=== PATIENT | male | born 1975 | race African-American/Black ===

== ENCOUNTER 2016-10-30 13:48 | Emergency (ER) | payer OTHER ==
[2016-10-30] MEDS ORDERED: ACETAMINOPHEN 325 MG TABLET PO ONE (14:19)
--- NOTE | 2016-10-30 14:20 | ER Document Report ---
ED Medical Screen (RME) - General Stated Complaint: WEAKNESS Notes: 41 yo male c/o fever, bodyaches, sore throat, bilat ear pain x 3 days. hx/o asthma, DM, HTN TRAVEL OUTSIDE OF THE [place] IN LAST 30 DAYS: No - Related Data Allergies/Adverse Reactions: hydrocodone bitartrate [From Vicodin] Allergy (Verified 10/30/16 14:18) tramadol HCl [From Ultram] Allergy (Verified 10/30/16 14:18) Past Medical History - Past Medical History Cardiac Medical History: Reports: Hx Hypercholesterolemia, Hx Hypertension Pulmonary Medical History: Reports: Hx Asthma, Hx Bronchitis Endocrine Medical History: Reports: Hx Diabetes Mellitus Type 2 GI Medical History: Reports: Hx Gastroesophageal Reflux Disease Musculoskeltal Medical History: Reports Hx Arthritis Past Surgical History: Reports: Hx Appendectomy, Hx Cardiac Catheterization, Hx Oral Surgery - Immunizations Immunizations up to date: Yes Hx Diphtheria, Pertussis, Tetanus Vaccination: Yes
--- NOTE | 2016-10-30 16:18 | ER Document Report ---
HPI - HPI Patient complains to provider of: sore throat Pain Level: 3 Context: Patient is a 41-year-old male presents emergency Department complaining of a sore throat, bilateral earache, fever since Friday. States that his is in acute injuries because of this fluids at home but otherwise he hasn't had much of an appetite. Otherwise he denies shortness of breath, chest pain, dyspnea, wheezing. Denies any vomiting but has occasional nausea. Otherwise has had normal bowel movements. PCP is Nayeli amaral [facility] Past medical history denies Past surgical history significant for an appendectomy Social history denies any tobacco, alcohol or drug use Allergies to Ultram and Vicodin - DERM Skin Color: Normal <JADEN ACEVES - Last Filed: 10/30/16 19:50> Past Medical History - General Information source: Patient - Social History Smoking Status: Never Smoker Chew tobacco use (# tins/day): No Frequency of alcohol use: None Drug Abuse: None Family History: Arthritis, CAD - Father, Hyperlipidemia, Hypertension, Malignancy, Thyroid Disfunction Patient has suicidal ideation: No Patient has homicidal ideation: No - Past Medical History Cardiac Medical History: Reports: Hx Hypercholesterolemia, Hx Hypertension Pulmonary Medical History: Reports: Hx Asthma, Hx Bronchitis Endocrine Medical History: Reports: Hx Diabetes Mellitus Type 2 Renal/ Medical History: Denies: Hx Peritoneal Dialysis GI Medical History: Reports: Hx Gastroesophageal Reflux Disease Musculoskeltal Medical History: Reports Hx Arthritis Past Surgical History: Reports: Hx Appendectomy, Hx Cardiac Catheterization, Hx Oral Surgery - Immunizations Immunizations up to date: Yes Hx Diphtheria, Pertussis, Tetanus Vaccination: Yes <JADEN ACEVES - Last Filed: 10/30/16 19:50> Vertical Provider Document - CONSTITUTIONAL Agree With Documented VS: Yes Exam Limitations: No Limitations General Appearance: WD/WN, No Apparent Distress - INFECTION CONTROL TRAVEL OUTSIDE OF THE [place] IN LAST 30 DAYS: No - HEENT HEENT: Atraumatic, Normocephalic, PERRLA, Pharyngeal Tenderness, Pharyngeal Erythema. negative: Tympanic Membrane Red, Tympanic Membrane Bulging - NECK Neck: Normal Inspection, Lymphadenopathy-Left, Lymphadenopathy-Right - RESPIRATORY Respiratory: Breath Sounds Normal, No Respiratory Distress, Chest Non-Tender - CARDIOVASCULAR Cardiovascular: Regular Rhythm, No Murmur, Tachycardia Pulses: Normal: Radial - MUSCULOSKELETAL/EXTREMETIES Musculoskeletal/Extremeties: PONCHO, FROM, Non-Tender, No Edema - NEURO Level of Consciousness: Awake, Alert, Appropriate Motor/Sensory: No Motor Deficit, No Sensory Deficit - DERM Integumentary: Warm, Dry, No Rash <JADEN ACEVES - Last Filed: 10/30/16 19:50> Course - Re-evaluation Re-evalutation: 10/30/16 17:41 Rapid strep is come back positive. Otherwise going to treat patient symptomatically for fever and give him some IV fluids for tachycardia. We will send baseline labs to evaluate for any leukocytosis or abnormalities and electrolytes. Otherwise patient is hemodynamically stable, no acute distress and sitting comfortably. 10/30/16 19:18 Labs did reveal a ptosis of 22,000. Repeat vital signs show a temperature 100.1 , tachycardic in the 1 teens. Otherwise resting comfortably. Is still only received his first bolus of [address] L[address] Case discussed with Dr. Baca. Recommended IV Decadron and Toradol and another liter of fluid and reassessment. Sign out to ALLI Muñoz - Laboratory Result Diagrams: 10/30/16 17:35 10/30/16 17:35 <JADEN ACEVES - Last Filed: 10/30/16 19:50> - Re-evaluation Re-evalutation: 10/30/16 22:17 Patient's vital signs have all normalized after IV fluids, Decadron, Toradol and amoxicillin was given here in the emergency department. Patient feels much better and would like to go home. Clinically he looks very well. Asking for soup. He is going home with a prescription for amoxicillin. - Vital Signs Vital signs: Temp Pulse Resp BP Pulse Ox 98.3 F 87 16 118/79 97 10/30/16 22:00 10/30/16 22:00 10/30/16 22:00 10/30/16 22:00 10/30/16 22:00 - Laboratory Result Diagrams: 10/30/16 17:35 10/30/16 17:35 Laboratory results interpreted by me: 10/30/16 10/30/16 17:35 17:35 WBC 22.0 H Seg Neuts % (Manual) 85 H Lymphocytes % (Manual) 7 L Abs Neuts (Manual) 18.7 H Abs Monocytes (Manual) 1.8 H Sodium 136.2 L Glucose 186 H Total Protein 8.5 H <NAYELI MUÑOZ - Last Filed: 10/30/16 22:18> Discharge <JADEN ACEVES - Last Filed: 10/30/16 19:50> <NAYELI MUÑOZ - Last Filed: 10/30/16 22:18> - Discharge Clinical Impression: Strep pharyngitis Condition: Stable Disposition: HOME, SELF-CARE Instructions: Acetaminophen, Fever ([facility]), Strep Throat ([facility]), Amoxicillin ([facility]) Prescriptions: Amoxicillin 500 mg PO BID #20 capsule Referrals: NAYELI GRAHMA PA-C [Primary Care Provider] - Follow up in 1 month
[2016-10-30] MEDS ORDERED: NORMAL SALINE 1000 ML 1,000 ML IV PRN (16:20)
[2016-10-30] MEDS ORDERED: ONDANSETRON 4 MG TAB.RAPDIS PO ONE (16:20)
[2016-10-30 18:13] LABS: ALANINE AMINOTRANSFERASE 38 U/L (21-72); ALKALINE PHOSPHATASE 97 U/L (38-126); ANION GAP 14 (5-19); ASPARTATE AMINO TRANSFERASE 22 U/L (17-59); BILIRUBIN,TOTAL 0.9 mg/dL (0.2-1.3); BLOOD UREA NITROGEN 10 mg/dL (7-20); CALCIUM 9.3 mg/dL (8.4-10.2); CARBON DIOXIDE 23 mmol/L (22-30); CHLORIDE 99 mmol/L (98-107); CREATININE RESULT 0.93 mg/dL (0.52-1.25); GLUCOSE 186 mg/dL (75-110); POTASSIUM 4.3 mmol/L (3.6-5.0); SODIUM 136.2 mmol/L (137-145); TOTAL PROTEIN 8.5 g/dL (6.3-8.2)
[2016-10-30 18:16] LABS: HEMATOCRIT 46.4 % (37.9-51.0); HEMOGLOBIN 14.9 g/dL (13.5-17.0); HGB HCT DIFFERENCE -1.7; MEAN CORPUSCULAR HEMOGLOBIN 29.1 pg (27.0-33.4); MEAN CORPUSCULAR VOLUME 91 fl (80-97); RED BLOOD COUNT 5.11 10^6/uL (4.35-5.55); RED CELL DISTRIBUTION WIDTH 13.2 % (11.5-14.0)
[2016-10-30 18:34] LABS: BASOPHILS % (MANUAL) 0 % (0-2); EOSINOPHILS % (MANUAL) 0 % (0-6); LYMPHOCYTES % (MANUAL) 7 % (13-45); TOTAL CELLS COUNTED 100
[2016-10-30 18:35] LABS: RBC MORPHOLOGY COMMENT NORMO-CYTIC/CHROMIC
[2016-10-30 18:36] LABS: TOXIC VACUOLATION PRESENT
[2016-10-30] MEDS ORDERED: KETOROLAC TROMETHAMINE INJ/PF 30 MG/1 ML SDV IV ONE (19:16)
[2016-10-30] MEDS ORDERED: DEXAMETHASONE SOD PHOSPHATE INJ 4 MG/1 ML VIAL IV ONE (19:16)
[2016-10-30] MEDS ORDERED: NORMAL SALINE 1000 ML 1,000 ML IV ONE (21:00)
[2016-10-30 22:13] VITALS: BP 118/79
== END 2016-10-30 22:25 | disposition home or self-care (01) ==
LOC: ER 13:48
DX: J02.0 Streptococcal pharyngitis (principal); H92.03 Otalgia, bilateral; R50.9 Fever, unspecified; R11.0 Nausea; R59.0 Localized enlarged lymph nodes; I10 Essential (primary) hypertension; J45.909 Unspecified asthma, uncomplicated; E11.9 Type 2 diabetes mellitus without complications; Z88.5 Allergy status to narcotic agent; R00.0 Tachycardia, unspecified
CPT/HCPCS: 99283; 96361; 96374; 96375; 36415; 87040; 87880; 85025; 80053; 83605; 71020; J1100; S0119; J1885; J7030

== ENCOUNTER 2016-11-26 21:46 | Emergency (ER) | payer OTHER ==
[2016-11-27] MEDS ORDERED: IBUPROFEN 800 MG TABLET PO ONE (02:22)
--- NOTE | 2016-11-27 02:26 | ER Document Report ---
ED ENT - General Chief Complaint: Sore Throat Stated Complaint: SORE THROAT,FEVER Time seen by provider: 02:21 Mode of Arrival: Ambulatory Information source: Patient Notes: 41-year-old male presents to ED for sore throat bodyaches fever. He states he had strep throat 3 weeks ago and it feels the same now TRAVEL OUTSIDE OF THE [place] IN LAST 30 DAYS: No - HPI Patient complains to provider of: Nose problem, Throat problem Onset: Other - Couple days Onset/Duration: Worse Quality of pain: Sharp Severity: Moderate Pain Level: 4 Context: Recent Illness Location of pain: Nose, Sinus, Throat Associated symptoms: Cough, Dizziness, Fever, Runny nose, Sinus drainage, Sore throat Similar symptoms previously: Yes Recently seen / treated by doctor: Yes - Related Data Allergies/Adverse Reactions: hydrocodone bitartrate [From Vicodin] Allergy (Verified 11/27/16 00:58) tramadol HCl [From Ultram] Allergy (Verified 11/27/16 00:58) Past Medical History - General Information source: Patient - Social History Smoking Status: Never Smoker Cigarette use (# per day): No Chew tobacco use (# tins/day): No Smoking Education Provided: No Frequency of alcohol use: None Drug Abuse: None Occupation: sells cars Lives with: Family Family History: Arthritis, CAD - Father, Hyperlipidemia, Hypertension, Malignancy, Thyroid Disfunction Patient has suicidal ideation: No Patient has homicidal ideation: No - Past Medical History Cardiac Medical History: Reports: Hx Hypercholesterolemia, Hx Hypertension Pulmonary Medical History: Reports: Hx Asthma, Hx Bronchitis EENT Medical History: Reports: None Neurological Medical History: Reports: None Endocrine Medical History: Reports: Hx Diabetes Mellitus Type 2 Renal/ Medical History: Reports: None Malignancy Medical History: Reports None GI Medical History: Reports: Hx Gastroesophageal Reflux Disease Musculoskeltal Medical History: Reports Hx Arthritis Skin Medical History: Reports None Psychiatric Medical History: Reports: None Traumatic Medical History: Reports: None Infectious Medical History: Reports: None Past Surgical History: Reports: Hx Appendectomy, Hx Cardiac Catheterization, Hx Oral Surgery - Immunizations Immunizations up to date: Yes Hx Diphtheria, Pertussis, Tetanus Vaccination: Yes Review of Systems - Review of Systems Constitutional: Fever, Recent illness EENT: Nose discharge, Sinus discharge, Throat pain Cardiovascular: No symptoms reported Respiratory: Cough Gastrointestinal: No symptoms reported Genitourinary: No symptoms reported Male Genitourinary: No symptoms reported Musculoskeletal: No symptoms reported Skin: No symptoms reported Hematologic/Lymphatic: No symptoms reported Neurological/Psychological: No symptoms reported -: Yes All other systems reviewed and negative Physical Exam - Vital signs Vitals: Temp Pulse Resp BP Pulse Ox 97.9 F 94 18 109/89 H 98 11/27/16 01:33 11/27/16 01:33 11/27/16 01:33 11/27/16 01:33 11/27/16 01:33 Interpretation: Normal - General General appearance: Appears well, Alert - HEENT Head: Normocephalic, Atraumatic Eyes: Normal Pupils: PERRL Ears: Normal External canal: Normal Tympanic membrane: Normal Sinus: Normal Nasal: Purulent discharge, Swelling Mouth/Lips: Normal Mucous membranes: Normal Pharynx: Erythema, Post nasal drainage. No: Exudate, Peritonsillar abscess, Retropharyngeal abscess, Tonsillar hypertrophy, Uvular edema, Potential airway comprom. Neck: Normal - Respiratory Respiratory status: No respiratory distress Chest status: Nontender Breath sounds: Nonproductive cough Chest palpation: Normal - Cardiovascular Rhythm: Regular Heart sounds: Normal auscultation Murmur: No - Abdominal Inspection: Normal Distension: No distension Bowel sounds: Normal Tenderness: Nontender Organomegaly: No organomegaly - Back Back: Normal, Nontender - Extremities General upper extremity: Normal inspection, Nontender, Normal color, Normal ROM , Normal temperature General lower extremity: Normal inspection, Nontender, Normal color, Normal ROM , Normal temperature, Normal weight bearing. No: Gregory's sign - Neurological Neuro grossly intact: Yes Cognition: Normal Orientation: AAOx4 Hurley Coma Scale Eye Opening: Spontaneous Nika Coma Scale Verbal: Oriented Nika Coma Scale Motor: Obeys Commands Hurley Coma Scale Total: 15 Speech: Normal Motor strength normal: LUE, RUE, LLE, RLE Sensory: Normal - Psychological Associated symptoms: Normal affect, Normal mood - Skin Skin Temperature: Warm Skin Moisture: Dry Skin Color: Normal Course - Re-evaluation Re-evalutation: 11/27/16 04:40 Patient was treated with a Decadron shot and azithromycin and sent home with a prescription for azithromycin. Patient instructed to follow-up with his primary doctor by telephone in the morning to schedule a follow-up visit. Patient verbalized understanding of the instructions. - Vital Signs Vital signs: Temp Pulse Resp BP Pulse Ox 98.6 F 97 20 130/89 H 97 11/27/16 03:35 11/27/16 03:35 11/27/16 03:35 11/27/16 03:35 11/27/16 03:35 Discharge - Discharge Clinical Impression: Strep throat Condition: Stable Disposition: HOME, SELF-CARE Instructions: Family Physicians / Practices Additional Instructions: STREP THROAT: Your sore throat is due to the streptococcus germ (strep throat). Strep throat usually makes you feel quite ill with fever and aches, headache, swollen sore throat, and tender bumps under the angles of the jaw. Strep throat requires antibiotic treatment. Although the sore throat may go away by itself, complications such as rheumatic fever, kidney disease, or throat abscess can occur. We usually prescribe antibiotics by mouth. Be sure to take the medicine until it's gone. If you stop early, the strep may come back. If you are vomiting, are severely ill, or can't remember to take pills, we can give you an antibiotic shot. Take acetaminophen or ibuprofen for pain and fever. Sip frequent clear liquids, or use popsicles or ice chips. Anesthetic sprays or lozenges may help. Make sure the air in the room is not too dry. Avoid using decongestants or antihistamines. Call the doctor if there is no improvement in three days, or if you have difficulty breathing, increasing throat pain, high fever, rash, or frequent vomiting. Azithromycin Azithromycin (Zithromax) is a broad spectrum antibiotic in the same class as erythromycin. It can treat a variety of bacterial infections, but is most frequently used for respiratory infections. Azithromycin is extremely long-lasting. It accumulates in body tissues and continues to kill bacteria for many days. In order to improve absorption, Azithromycin should be taken at least one hour before or two hours after a meal. It does not have the same strong tendency to upset the stomach as erythromycin and is usually very well tolerated. Patients who have had a rash or other true allergic reactions to erythromycin should not take this medication. Call if you develop gastrointestinal distress, severe diarrhea, rash, hives, itching, or shortness of breath. STEROID MEDICATION: You have been given a medicine of the cortisone/steroid class. This medication is used to control inflammation or allergy. It is usually only given for a short period of time, until the acute process subsides. There are usually no side effects from short-term use of cortisone-like medications. Some persons feel an increased sense of well-being and are not sleepy at bedtime. Long-term use of cortisone medications is best avoided, unless required for a severe condition. If your condition does not remit, or relapses after the course of corticosteroid medication, you should consult your physician. FOLLOW-UP CARE: If you have been referred to a physician for follow-up care, call the physician s office for an appointment as you were instructed or within the next two days. If you experience worsening or a significant change in your symptoms, notify the physician immediately or return to the Emergency Department at any time for re-evaluation. Prescriptions: Azithromycin [Zithromax 250 mg Tablet] 250 mg PO ASDIR PRN #6 tablet PRN Reason: Forms: Elevated Blood Pressure, Return to Work
[2016-11-27] MEDS ORDERED: DEXAMETHASONE SOD PHOS INJ 10 MG/1 ML VIAL IM ONE (03:15)
[2016-11-27] MEDS ORDERED: AZITHROMYCIN 250 MG TABLET PO ONE (03:15)
[2016-11-27 03:37] VITALS: BP 130/89
== END 2016-11-27 03:35 | disposition home or self-care (01) ==
LOC: ER 21:46
DX: J02.0 Streptococcal pharyngitis (principal); R50.9 Fever, unspecified; R05 Cough; R42 Dizziness and giddiness; J34.89 Other specified disorders of nose and nasal sinuses; I10 Essential (primary) hypertension; J45.909 Unspecified asthma, uncomplicated; E11.9 Type 2 diabetes mellitus without complications; Z88.5 Allergy status to narcotic agent
CPT/HCPCS: 99283; 96372; 87880; 87804; J1100

== ENCOUNTER 2017-03-20 14:48 | Emergency (ER) | payer OTHER ==
[2017-03-20] MEDS ORDERED: ASPIRIN 81 MG TABLET, CHEWABLE PO ONE (15:46)
--- NOTE | 2017-03-20 16:18 | RADIOLOGY REPORT (SQ) ---
EXAM DESCRIPTION: CHEST SINGLE VIEW COMPLETED DATE/TIME: 03/20/2017 4:00 pm REASON FOR STUDY: chest pain COMPARISON: Two-view chest 10/30/2016 EXAM PARAMETERS: NUMBER OF VIEWS: One view. TECHNIQUE: Single frontal radiographic view of the chest acquired. RADIATION DOSE: NA LIMITATIONS: None. FINDINGS: LUNGS AND PLEURA: No opacities, masses or pneumothorax. No pleural effusion. MEDIASTINUM AND HILAR STRUCTURES: No masses. Contour normal. HEART AND VASCULAR STRUCTURES: Heart normal in size. Normal vasculature. BONES: No acute findings. HARDWARE: None in the chest. OTHER: No other significant finding. IMPRESSION: NO ACUTE RADIOGRAPHIC FINDING IN THE CHEST. TECHNICAL DOCUMENTATION: JOB ID: [id number]
--- NOTE | 2017-03-20 16:45 | ER Document Report ---
ED Cardiac - General Chief Complaint: Chest Pain Stated Complaint: CHEST PAIN Time Seen by Provider: 03/20/17 16:01 Mode of Arrival: Ambulatory Information source: Patient Notes: 41 yo obese non smoker, htn, dm, hyperlipediemic male states he does not want to stay for evaluation now or blood draw. He had episode of retrusternal chest pain that lasted 10-15 minutes which began while he was stopped at a stoplight. Gone now. Had EKG and Chest xray done. He spoke with his after discussion with him about the risks of due AL or complications unevaluated chest pain. Emily orellana RN was in the room for this discussion. Pt states he will accept the responsibiltiy and signed out AMA. I went in detail about all his risks for CAD, obesity, DM , HTN, hyperliopedemia. He has been evaluated for chest pain about 2 years ago. He states his stress test were negative (2) along with negative cardiac cath. 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 TRAVEL OUTSIDE OF THE [place] IN LAST 30 DAYS: No - Related Data Allergies/Adverse Reactions: hydrocodone bitartrate [From Vicodin] Allergy (Verified 03/20/17 15:08) tramadol HCl [From Ultram] Allergy (Verified 03/20/17 15:08) Past Medical History - General Information source: Patient - Social History Smoking Status: Never Smoker Chew tobacco use (# tins/day): No Frequency of alcohol use: None Drug Abuse: None Lives with: Spouse/Significant other Family History: Arthritis, CAD - Father, Hyperlipidemia, Hypertension, Malignancy, Thyroid Disfunction Patient has suicidal ideation: No Patient has homicidal ideation: No - Past Medical History Cardiac Medical History: Reports: Hx Hypercholesterolemia, Hx Hypertension Pulmonary Medical History: Reports: Hx Asthma, Hx Bronchitis Endocrine Medical History: Reports: Hx Diabetes Mellitus Type 2 Renal/ Medical History: Denies: Hx Peritoneal Dialysis GI Medical History: Reports: Hx Gastroesophageal Reflux Disease Musculoskeltal Medical History: Reports Hx Arthritis Past Surgical History: Reports: Hx Appendectomy, Hx Cardiac Catheterization, Hx Oral Surgery - Immunizations Immunizations up to date: Yes Hx Diphtheria, Pertussis, Tetanus Vaccination: Yes Review of Systems - Review of Systems Constitutional: No symptoms reported EENT: No symptoms reported Cardiovascular: See HPI Respiratory: No symptoms reported Gastrointestinal: No symptoms reported Genitourinary: No symptoms reported Male Genitourinary: No symptoms reported Musculoskeletal: No symptoms reported Skin: No symptoms reported Hematologic/Lymphatic: No symptoms reported Neurological/Psychological: No symptoms reported Physical Exam - Vital signs Vitals: Temp Pulse Resp BP Pulse Ox 98.5 F 92 16 133/89 H 97 03/20/17 14:50 03/20/17 14:50 03/20/17 14:50 03/20/17 14:50 03/20/17 14:50 Interpretation: Normal - General General appearance: Appears well, Alert - HEENT Head: Normocephalic, Atraumatic Eyes: Normal Pupils: PERRL Neck: Supple - Respiratory Respiratory status: No respiratory distress Chest status: Nontender Breath sounds: Normal Chest palpation: Normal - Cardiovascular Rhythm: Regular Heart sounds: Normal auscultation Murmur: No - Extremities General upper extremity: Normal inspection, Nontender, Normal color, Normal ROM , Normal temperature General lower extremity: Normal inspection, Nontender, Normal color, Normal ROM , Normal temperature, Normal weight bearing. No: Gregory's sign - Neurological Neuro grossly intact: Yes Cognition: Normal Orientation: AAOx4 Nika Coma Scale Eye Opening: Spontaneous Nika Coma Scale Verbal: Oriented Nika Coma Scale Motor: Obeys Commands Nika Coma Scale Total: 15 Speech: Normal Motor strength normal: LUE, RUE, LLE, RLE Sensory: Normal - Psychological Associated symptoms: Normal affect, Normal mood - Skin Skin Temperature: Warm Skin Moisture: Dry Skin Color: Normal Course - Re-evaluation Re-evalutation: 03/20/17 16:37 Patient does not want to stay for lab work. The chest x-ray is negative and the EKG shows normal sinus rhythm rate of 90. He accepts the responsibility of potentially dying from a heart attack without the full evaluation he signed AMA form and I told him he needs to start taking one baby aspirin a day, lose weight , and see a furnace operator. 03/21/17 04:13 reviewing and completing pt chart and noted that no vitals were placed into [facility]. I have called the [facility] the night charge nurse to pull the record for the pivot vital signs to be added to the record. - Vital Signs Vital signs: Temp Pulse Resp BP Pulse Ox 98.5 F 92 16 133/89 H 97 03/20/17 14:50 03/20/17 14:50 03/20/17 14:50 03/20/17 14:50 03/20/17 14:50 Discharge - Discharge Clinical Impression: Chest pain Condition: Stable Disposition: AGAINST MEDICAL ADVICE Instructions: Chest Pain of Unclear Cause ([facility]), Aspirin (Cardiac) ([facility]) Additional Instructions: take baby aspirin daily lose weight to ER if you change your mind about cardiac/chest pain evaluation cariology referral given to you . dr. sung. Please complete the patient satisfaction survey if you get one, and return it.. If you do not receive a survey, then you can go to the [facility] website, [email or web address] and place your comments about your very good care. Thank you very much. It was a pleasure being your medical provider today. Referrals: NAYELI GRAHAM PA-C [Primary Care Provider] - Follow up as needed PARAMJIT KHAN MD [ACTIVE STAFF] - Follow up tomorrow
--- NOTE | 2017-03-20 22:26 | EKG REPORT ---
SEVERITY:- BORDERLINE ECG - SINUS RHYTHM BORDERLINE LEFT AXIS DEVIATION BORDERLINE T ABNORMALITIES, DIFFUSE LEADS : Confirmed by: Rebeca Chaudhary 20-Mar-2017 22:25:58
[2017-03-21 09:17] VITALS: BP 133/89
== END 2017-03-20 16:39 | disposition left against medical advice (07) ==
LOC: ER 14:48
DX: R07.9 Chest pain, unspecified (principal); I10 Essential (primary) hypertension; E78.5 Hyperlipidemia, unspecified; E11.9 Type 2 diabetes mellitus without complications; E66.9 Obesity, unspecified; J45.909 Unspecified asthma, uncomplicated; Z68.44 Body mass index [BMI] 60.0-69.9, adult; Z53.20 Procedure and treatment not carried out because of patient's decision for unspecified reasons; Z88.5 Allergy status to narcotic agent; Z82.49 Family history of ischemic heart disease and other diseases of the circulatory system
CPT/HCPCS: 71010; 93005; 93010; 99285

== ENCOUNTER → 2017-04-15 | Outpatient (CLI) | payer OTHER | LOC: LAB 20:17 | PROVIDERS: ATTEND Nurse Practitioner Acute Care | DX: N39.0 Urinary tract infection, site not specified (principal); M54.5 Low back pain | CPT/HCPCS: 87086; 87088; 87186 ==

== ENCOUNTER → 2017-05-20 | Outpatient (CLI) | payer OTHER | LOC: LAB 20:10 | PROVIDERS: ATTEND Nurse Practitioner Acute Care | DX: R30.0 Dysuria (principal) | CPT/HCPCS: 87086 ==

== ENCOUNTER 2017-09-15 12:40 | Emergency (ER) | payer SELFPAY ==
--- NOTE | 2017-09-15 13:17 | ER Document Report ---
ED Medical Screen (RME) - General Chief Complaint: Headache Stated Complaint: HEADACHE Time Seen by Provider: 09/15/17 13:04 Mode of Arrival: Ambulatory Information source: Patient Notes: Patient is a 41 year old male with a history of Diabetes and HTN presents to the emergency department complaining of a headache onset 4 days ago. Patients associated symptoms include neck pain and slight photophobia. Patient states that the pain gradually worsened over time. Patient states that it is rare for him to get headaches. Patient denies fever, cough, or change in vision. Patient states that he has taken Motrin and Aleve but it does not alleviate is symptoms for long. GENERAL: Alert, interacts well. No acute distress. LUNGS: Clear to auscultation bilaterally, no wheezes, rales, or rhonchi. No respiratory distress. HEART: Regular rate and rhythm. No murmurs, gallops, or rubs. I have greeted and performed a rapid initial assessment of this patient. A comprehensive ED assessment and evaluation of the patient, analysis of test results and completion of the medical decision making process will be conducted by additional ED providers. TRAVEL OUTSIDE OF THE [place] IN LAST 30 DAYS: No - Related Data Allergies/Adverse Reactions: hydrocodone bitartrate [From Vicodin] Allergy (Verified 09/15/17 12:41) tramadol HCl [From Ultram] Allergy (Verified 09/15/17 12:41) Past Medical History - Past Medical History Cardiac Medical History: Reports: Hx Hypercholesterolemia, Hx Hypertension Pulmonary Medical History: Reports: Hx Asthma, Hx Bronchitis Endocrine Medical History: Reports: Hx Diabetes Mellitus Type 2 Renal/ Medical History: Denies: Hx Peritoneal Dialysis GI Medical History: Reports: Hx Gastroesophageal Reflux Disease Musculoskeltal Medical History: Reports Hx Arthritis Past Surgical History: Reports: Hx Appendectomy, Hx Cardiac Catheterization, Hx Oral Surgery - Immunizations Immunizations up to date: Yes Hx Diphtheria, Pertussis, Tetanus Vaccination: Yes Physical Exam - Vital signs Vitals: Temp Pulse Resp BP Pulse Ox 97.8 F 75 16 141/97 H 96 09/15/17 12:46 09/15/17 12:46 09/15/17 12:46 09/15/17 12:46 09/15/17 12:46 Course - Vital Signs Vital signs: Temp Pulse Resp BP Pulse Ox 97.8 F 75 16 141/97 H 96 09/15/17 12:46 09/15/17 12:46 09/15/17 12:46 09/15/17 12:46 09/15/17 12:46 Scribe Documentation - Scribe Written by Jaiden:: Jaiden More, 09/15/2017 13:17 acting as scribe for :: Bhavik
[2017-09-15 13:48] LABS: ABSOLUTE BASOPHILS # (AUTO) 0.1 10^3/uL (0.0-0.2); ABSOLUTE EOSINOPHILS # (AUTO) 0.1 10^3/uL (0.0-0.6); ABSOLUTE LYMPHOCYTES (AUTO) 2.7 10^3/uL (0.5-4.7); ABSOLUTE MONOCYTES (AUTO) 0.9 10^3/uL (0.1-1.4); BASOPHILS % (AUTO) 0.7 % (0-2); EOSINOPHILS % (AUTO) 1.5 % (0-6); HEMATOCRIT 48.7 % (37.9-51.0); HGB HCT DIFFERENCE -0.7; MEAN CORPUSCULAR VOLUME 91 fl (80-97); MONOCYTES % (AUTO) 9.7 % (3-13); RED BLOOD COUNT 5.34 10^6/uL (4.35-5.55); RED CELL DISTRIBUTION WIDTH 13.4 % (11.5-14.0); SEGMENTED NEUTROPHILS % (AUTO) 57.1 % (42-78); WHITE BLOOD COUNT 8.8 10^3/uL (4.0-10.5)
[2017-09-15 14:10] LABS: ANION GAP 13 (5-19); BLOOD UREA NITROGEN 13 mg/dL (7-20); CALCIUM 9.5 mg/dL (8.4-10.2); CARBON DIOXIDE 29 mmol/L (22-30); CHLORIDE 101 mmol/L (98-107); CREATININE RESULT 0.75 mg/dL (0.52-1.25); GLUCOSE 132 mg/dL (75-110); POTASSIUM 4.5 mmol/L (3.6-5.0)
[2017-09-15] MEDS ORDERED: ACETAMINOPHEN 325 MG TABLET PO ONE (14:47)
--- NOTE | 2017-09-15 15:04 | ER Document Report ---
ED Headache - General Chief Complaint: Headache Stated Complaint: HEADACHE Time Seen by Provider: 09/15/17 13:04 Mode of Arrival: Ambulatory Information source: Patient Notes: 41-year-old male with past medical history of high blood pressure, high cholesterol, diabetes who presents with 1 week the slow development of a headache after 24 hours of runny nose, congestion, and left ear pain. Patient states the headache is actually improved. He denies any blurry vision, trauma, neck pain, fevers, vomiting, weakness or numbness, or any other acute problems. TRAVEL OUTSIDE OF THE [place] IN LAST 30 DAYS: No - HPI Patient complains to provider of: Headache Patient reports: Other - See above Onset: Other - See above Onset was: Gradual. denies: Abrupt Timing: Better Quality of pain: Achy Severity: Moderate Pain Level: 1 Context: Other - See above. denies: Head injury, Meningitis exposure Associated symptoms: Other - See above Exacerbated by: Light, Noise Similar symptoms previously: No Recently seen / treated by doctor: No - Related Data Allergies/Adverse Reactions: hydrocodone bitartrate [From Vicodin] Allergy (Verified 09/15/17 12:41) tramadol HCl [From Ultram] Allergy (Verified 09/15/17 12:41) Past Medical History - General Information source: Patient - Social History Smoking Status: Never Smoker Cigarette use (# per day): No Chew tobacco use (# tins/day): No Smoking Education Provided: No Frequency of alcohol use: None Drug Abuse: None Family History: Arthritis, CAD - Father, Hyperlipidemia, Hypertension, Malignancy, Thyroid Disfunction Patient has suicidal ideation: No Patient has homicidal ideation: No - Past Medical History Cardiac Medical History: Reports: Hx Hypercholesterolemia, Hx Hypertension Pulmonary Medical History: Reports: Hx Asthma, Hx Bronchitis Endocrine Medical History: Reports: Hx Diabetes Mellitus Type 2 Renal/ Medical History: Denies: Hx Peritoneal Dialysis GI Medical History: Reports: Hx Gastroesophageal Reflux Disease Musculoskeltal Medical History: Reports Hx Arthritis Past Surgical History: Reports: Hx Appendectomy, Hx Cardiac Catheterization, Hx Oral Surgery - Immunizations Immunizations up to date: Yes Hx Diphtheria, Pertussis, Tetanus Vaccination: Yes Review of Systems - Review of Systems Constitutional: denies: Fever EENT: denies: Eye discharge, Nose discharge Gastrointestinal: denies: Diarrhea, Vomiting Genitourinary: denies: Dysuria Musculoskeletal: denies: Leg swelling Skin: Other - no hives. denies: Rash Neurological/Psychological: denies: Confusion, Hallucinations, Gait changes, Loss of power, Numbness -: Yes All other systems reviewed and negative Physical Exam - Vital signs Vitals: Temp Pulse Resp BP Pulse Ox 97.8 F 75 16 141/97 H 96 09/15/17 12:46 09/15/17 12:46 09/15/17 12:46 09/15/17 12:46 09/15/17 12:46 Notes: Reviewed vital signs and nursing note as charted by RN. CONSTITUTIONAL: Alert and oriented and responds appropriately to questions. Well -appearing; well-nourished HEAD: Normocephalic; atraumatic EYES: PERRL ENT: Normal nose; bilateral nonpurulent nasal rhinorrhea; no mastoid tenderness or swelling; no tympanic membrane lesions or discharge from the ER; moist mucous membranes; pharynx without lesions noted NECK: Supple without meningismus; non-tender; no cervical lymphadenopathy, no masses CARD: Regular rate and rhythm; no murmurs, no clicks, no rubs, no gallops; symmetric distal pulses RESP: Normal chest excursion without splinting or tachypnea; breath sounds clear and equal bilaterally EXT: Normal ROM in all joints; non-tender to palpation; no cyanosis, no effusions, no edema SKIN: No acute lesions noted NEURO: CN II through XII are intact. Patient has 5 out of 5 bilateral upper and lower extremity strength with sensation intact to light touch PSYCH: The patient's mood and manner are appropriate. Grooming and personal hygiene are appropriate. Course - Re-evaluation Re-evalutation: 09/15/17 15:07 Given the history, physical, frontal headache, no fever, slow onset of symptoms with improved headache at this time, symptom onset after 2 days of congestion, no mastoid tenderness or swelling, no fevers, no focal neurological deficits, I do believe acute sinusitis, acute bacterial meningitis, subarachnoid hemorrhage , all to be extremely unlikely. Given lack of previous imaging I will order CT scan of the head and provide Tylenol. We will reassess. 09/15/17 16:10 CT scan of the head as recorded. Patient currently denies any headache. Patient still has no focal neurological deficits. Patient will be discharged home at this time with strict return precautions and follow-up with the primary provider. I had a long discussion with the patient regarding the low pretest probability I have subarachnoid hemorrhage. I have explained given the onset of his headache and the symptomatology that it does not seem like a subarachnoid hemorrhage. I have explained that I cannot rule out this diagnosis with certainty with a CT scan given the time difference between onset of symptoms and current CT. Patient states he understands this and would like to defer the lumbar puncture at this time understanding the risks and benefits. I believe that this is a reasonable option at this time. - Vital Signs Vital signs: Temp Pulse Resp BP Pulse Ox 97.8 F 75 16 141/97 H 96 09/15/17 12:46 09/15/17 12:46 09/15/17 12:46 09/15/17 12:46 09/15/17 12:46 - Laboratory Result Diagrams: 09/15/17 13:33 09/15/17 13:33 Laboratory results interpreted by me: 09/15/17 13:33 Glucose 132 H Discharge - Discharge Clinical Impression: Nasal congestion Headache Qualifiers: Headache type: unspecified Headache chronicity pattern: acute headache Intractability: not intractable Qualified Code(s): R51 - Headache Condition: Good Disposition: HOME, SELF-CARE Additional Instructions: Come back immediately with any worsening headache, blurry vision, fevers, vomiting, neck stiffness, weakness or numbness, or any other acute problems.
--- NOTE | 2017-09-15 15:10 | RADIOLOGY REPORT (SQ) ---
EXAM DESCRIPTION: CT HEAD WITHOUT COMPLETED DATE/TIME: 09/15/2017 2:56 pm REASON FOR STUDY: 41, headache;congestion COMPARISON: 01/10/2016 TECHNIQUE: Axial images acquired through the brain without intravenous contrast. Images reviewed wi th bone, brain and subdural windows. Images stored on PACS. All CT scanners at this facility use dose modulation, iterative reconstruction, and/or weight based d osing when appropriate to reduce radiation dose to as low as reasonably achievable (ALARA). [facility]: Dose Right [facility]: CareDose [facility]: Dose Right [facility]: Teradose 4D [facility]: Smart Local Motion RADIATION DOSE: CT Rad equipment meets quality standard of care and radiation dose reduction techniq ues were employed. CTDIvol: 64.6 mGy. DLP: 1163 mGy-cm. mGy. LIMITATIONS: None. FINDINGS: VENTRICLES: Normal size and contour. CEREBRUM: No masses. No hemorrhage. No midline shift. No evidence for acute infarction. Normal gra y/white matter differentiation. No areas of low density in the white matter. CEREBELLUM: No masses. No hemorrhage. No alteration of density. No evidence for acute infarction. EXTRAAXIAL SPACES: No fluid collections. No masses. ORBITS AND GLOBE: No intra- or extraconal masses. Normal contour of globe without masses. CALVARIUM: No fracture. PARANASAL SINUSES: No fluid or mucosal thickening. SOFT TISSUES: No mass or hematoma. OTHER: No other significant finding. IMPRESSION: No acute intracranial findings. EVIDENCE OF ACUTE STROKE: NO. COMMENT: Quality ID # [id number]: Final reports with documentation of one or more dose reduction techniques (e.g., Automated exposure control, adjustment of the mA and/or kV according to patient size, use of iterative reconstruction technique) TECHNICAL DOCUMENTATION: JOB ID: [id number] [place]-72 2010 [employer]- All Rights Reserved
[2017-09-15 16:33] VITALS: BP 120/88
== END 2017-09-15 16:33 | disposition home or self-care (01) ==
LOC: ER 12:40
DX: R09.81 Nasal congestion (principal); R51 Headache; H92.02 Otalgia, left ear; E78.00 Pure hypercholesterolemia, unspecified; I10 Essential (primary) hypertension; E11.9 Type 2 diabetes mellitus without complications
CPT/HCPCS: 36415; 70450; 80048; 85025; 99284

== ENCOUNTER 2018-01-16 21:22 | Emergency (ER) | payer SELFPAY ==
[2018-01-16 22:51] LABS: APPEARANCE,URINE CLEAR; BILIRUBIN,URINE NEGATIVE (NEGATIVE); COLOR,URINE YELLOW; GLUCOSE, URINE >=500 mg/dL (NEGATIVE); KETONES,URINE NEGATIVE (NEGATIVE); LEUKOCYTE ESTERASE,URINE NEGATIVE (NEGATIVE); NITRITE,URINE NEGATIVE (NEGATIVE); PROTEIN,URINE NEGATIVE (NEGATIVE); URINE SPECIFIC GRAVITY 1.025; UROBILINOGEN,URINE NEGATIVE mg/dL (<2.0)
[2018-01-17 00:27] LABS: ABSOLUTE BASOPHILS # (AUTO) 0.1 10^3/uL (0.0-0.2); ABSOLUTE EOSINOPHILS # (AUTO) 0.1 10^3/uL (0.0-0.6); ABSOLUTE LYMPHOCYTES (AUTO) 3.6 10^3/uL (0.5-4.7); ABSOLUTE MONOCYTES (AUTO) 1.1 10^3/uL (0.1-1.4); ABSOLUTE NEUT (AUTO) 5.3 10^3/uL (1.7-8.2); BASOPHILS % (AUTO) 0.8 % (0-2); EOSINOPHILS % (AUTO) 1.2 % (0-6); HEMOGLOBIN 15.6 g/dL (13.5-17.0); MEAN CORPUSCULAR HEMOGLOBIN 29.9 pg (27.0-33.4); MEAN CORPUSCULAR HGB CONC 33.2 g/dL (32.0-36.0); MEAN CORPUSCULAR VOLUME 90 fl (80-97); MONOCYTES % (AUTO) 10.6 % (3-13); PLATELET COUNT 239 10^3/uL (150-450); RED BLOOD COUNT 5.21 10^6/uL (4.35-5.55); RED CELL DISTRIBUTION WIDTH 13.6 % (11.5-14.0); SEGMENTED NEUTROPHILS % (AUTO) 52.4 % (42-78); TOTAL CELLS COUNTED % (AUTO) 100 %; WHITE BLOOD COUNT 10.2 10^3/uL (4.0-10.5)
[2018-01-17 00:41] LABS: ANION GAP 10 (5-19); BLOOD UREA NITROGEN 18 mg/dL (7-20); CALCIUM 9.5 mg/dL (8.4-10.2); CARBON DIOXIDE 28 mmol/L (22-30); CHLORIDE 103 mmol/L (98-107); GLUCOSE 182 mg/dL (75-110); POTASSIUM 4.2 mmol/L (3.6-5.0); SODIUM 141.3 mmol/L (137-145)
[2018-01-17] MEDS ORDERED: FLUCONAZOLE 100 MG TABLET PO ONE (01:01)
--- NOTE | 2018-01-17 01:02 | ER Document Report ---
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 States his main concern is that throughout the day today he has had intermittent dizziness and lightheadedness. He states he often feels this way when his blood sugars are imbalanced. He states when the symptoms persisted through the end of work he has had to come to the emergency department for further evaluation. He does note that he has had similar symptoms quite a few times in the past but they generally resolve on their own. At the time of my evaluation he denies any ongoing symptoms. States that he has had a lapse in his dietary regimen recently and has had poor eating habits as of last several weeks. States he that he is likewise not been taking his medications for blood pressure or cholesterol secondary to trying a new diet and exercise regimen. He has not spoken to his primary care doctor regarding today's concerns. Nothing seems to improve or worsen his symptoms. He denies any chest pain, shortness of breath, syncope, focal weakness or numbness, headache or confusion. TRAVEL OUTSIDE OF THE [place] IN LAST 30 DAYS: No - Related Data Allergies/Adverse Reactions: hydrocodone bitartrate [From Vicodin] Allergy (Verified 09/15/17 12:41) tramadol HCl [From Ultram] Allergy (Verified 09/15/17 12:41) Past Medical History - General Information source: Patient - Social History Smoking Status: Never Smoker Chew tobacco use (# tins/day): No Frequency of alcohol use: None Drug Abuse: None Lives with: Spouse/Significant other Family History: Arthritis, CAD - Father, Hyperlipidemia, Hypertension, Malignancy, Thyroid Disfunction Patient has suicidal ideation: No Patient has homicidal ideation: No - Past Medical History Cardiac Medical History: Reports: Hx Hypercholesterolemia, Hx Hypertension Pulmonary Medical History: Reports: Hx Asthma, Hx Bronchitis Endocrine Medical History: Reports: Hx Diabetes Mellitus Type 2 Renal/ Medical History: Denies: Hx Peritoneal Dialysis GI Medical History: Reports: Hx Gastroesophageal Reflux Disease Musculoskeltal Medical History: Reports Hx Arthritis Past Surgical History: Reports: Hx Appendectomy, Hx Cardiac Catheterization, Hx Oral Surgery - Immunizations Immunizations up to date: Yes Hx Diphtheria, Pertussis, Tetanus Vaccination: Yes Review of Systems - Review of Systems Notes: Constitutional: Negative for fever. HENT: Negative for sore throat. Eyes: Negative for visual changes. Cardiovascular: Negative for chest pain. Respiratory: Negative for shortness of breath. Gastrointestinal: Negative for abdominal pain, vomiting or diarrhea. Genitourinary: Negative for dysuria. Musculoskeletal: Negative for back pain. Skin: Negative for rash. Neurological: Negative for headaches, weakness or numbness. 10 point ROS negative except as marked above and in HPI. Physical Exam - Vital signs Vitals: Temp Pulse Resp BP Pulse Ox 97.9 F 85 18 142/90 H 98 01/16/18 21:22 01/16/18 21:22 01/16/18 21:22 01/16/18 21:22 01/16/18 21:22 Interpretation: Hypertensive Notes: PHYSICAL EXAMINATION: GENERAL: Well-appearing, well-nourished and in no acute distress. HEAD: Atraumatic, normocephalic. EYES: Pupils equal round and reactive to light, extraocular movements intact, sclera anicteric, conjunctiva are normal. ENT: nares patent, oropharynx clear without exudates. Moist mucous membranes. NECK: Normal range of motion, supple without lymphadenopathy LUNGS: Breath sounds clear to auscultation bilaterally and equal. No wheezes rales or rhonchi. HEART: Regular rate and rhythm without murmurs ABDOMEN: Soft, nontender, normoactive bowel sounds. No guarding, no rebound. No masses appreciated. EXTREMITIES: Normal range of motion, no pitting or edema. No cyanosis. NEUROLOGICAL: No focal neurological deficits. Moves all extremities spontaneously and on command. PSYCH: Normal mood, normal affect. SKIN: Warm, Dry, normal turgor, no rashes or lesions noted. Course - Re-evaluation Re-evalutation: 01/17/18 01:02 Patient presents with multiple vague complaints that did not appear to be concerning for any acute life-threatening pathology. Vitals are within normal limits at triage and at time of discharge. Physical examination is unremarkable. Patient has tolerated oral intake without difficulty. Patient was not noted to be in distress at any point during their ER visit. At this time, based on the reassuring evaluation, I do not suspect an acute [place], pulmonary embolus, aortic dissection, acute intra-abdominal pathology, stroke, or sepsis. Patient does complain of signs and symptoms typical for when he gets a yeast infection to his genital area. A dose of fluconazole has been administered. Will discharge with return precautions and follow-up recommendations. Verbal discharge instructions given a the bedside and opportunity for questions given. Medication warnings reviewed. Patient is in agreement with this plan and has verbalized understanding of return precautions and the need for primary care follow-up in the next 24-72 hours. - Vital Signs Vital signs: Temp Pulse Resp BP Pulse Ox 97.9 F 78 20 129/92 H 97 01/16/18 21:22 01/17/18 01:20 01/17/18 01:20 01/17/18 01:20 01/17/18 01:20 - Laboratory Result Diagrams: 01/17/18 00:14 01/17/18 00:14 Laboratory results interpreted by me: 01/16/18 01/16/18 01/17/18 21:49 22:28 00:14 Glucose 182 H POC Glucose 176 H Urine Glucose (UA) >=500 H - EKG Interpretation by Me Additional EKG results interpreted by me: 01/17/18 03:36 Normal sinus rhythm. Rate 75. No ST elevations or depressions. QTC is 438. Discharge - Discharge Clinical Impression: Dizziness, Hyperglycemia, Dysuria, Morbid obesity Condition: Good Disposition: HOME, SELF-CARE Additional Instructions: Please return to the emergency room immediately if you experience any concerning symptoms including high fevers, severe headache, chest pain, difficulty breathing, abdominal pain, slurred speech, numbness or weakness in your arms or legs, or any other symptom that concerns you. As we discussed today, please strongly consider losing weight. Your obesity will result in a shorter life and serious diagnoses including heart attacks, stroke, diabetes, high blood pressure, high cholesterol, kidney failure, and will also result in a much less enjoyable life due to these chronic conditions. Focus on gradual life style changes including removing sugared beverages and processed foods from your diet and at least 30 minutes of moderate activity daily. Try to target 4-5lbs of weight loss per month. Referrals: NAYELI GRAHAM PA-C [Primary Care Provider] - Follow up as needed
[2018-01-17 01:24] VITALS: BP 129/92
--- NOTE | 2018-01-17 08:46 | EKG REPORT ---
SEVERITY:- ABNORMAL ECG - SINUS RHYTHM LEFT VENTRICULAR HYPERTROPHY BORDERLINE T ABNORMALITIES, INFERIOR LEADS : Confirmed by: Anthony Hernandez MD 17-Jan-2018 08:45:52
== END 2018-01-17 01:23 | disposition home or self-care (01) ==
LOC: ER 21:22
DX: R42 Dizziness and giddiness (principal); E11.65 Type 2 diabetes mellitus with hyperglycemia; E66.01 Morbid (severe) obesity due to excess calories; R30.9 Painful micturition, unspecified; I10 Essential (primary) hypertension; J45.909 Unspecified asthma, uncomplicated
CPT/HCPCS: 36415; 80048; 81001; 82962; 84484; 85025; 87086; 87088; 93005; 93010; 99284

== ENCOUNTER 2018-03-03 16:03 | Emergency (ER) | payer OTHER ==
[2018-03-03 16:11] VITALS: BP 142/97
[2018-03-03] MEDS ORDERED: IPRATROPIUM/ALBUTEROL 0.5-2.5 MG/3 ML AMPUL NEB ONE (17:18)
[2018-03-03] MEDS ORDERED: METHYLPREDNISOLONE INJ 125 MG/2 ML SDV IM ONE (17:18)
--- NOTE | 2018-03-03 17:23 | ER Document Report ---
ED General - General Chief Complaint: Flu Symptoms Stated Complaint: POSSIBLE FLU SYMPTOMS Time Seen by Provider: 03/03/18 17:03 Notes: Chief complaint: Cough History of complain:( obtained from----patient) 42 years old male presents today with persistent cough and wheezing for the last few days. Was treated with Zithromax without improvement. Largely dry cough. With denies any headache dizziness chest pain. Denies any other constitutional symptoms. Onset: As above Duration: Gradual Severity: Moderate Quality: Diarrhea Context: Coughing Exacerbating factor and relieving factors: None REVIEW OF SYSTEMS: CONSTITUTIONAL : Denies fever, chills, or sweats. Denies recent illness. EENT: Denies eye, ear, throat, or mouth pain or symptoms. Denies nasal or sinus congestion or discharge. Denies throat, tongue, or mouth swelling or difficulty swallowing. CARDIOVASCULAR: Denies chest pain. Denies palpitations or racing or irregular heart beat. Denies ankle edema. RESPIRATORY: Denies cough, cold, or chest congestion. Denies shortness of breath, difficulty breathing, or wheezing. GASTROINTESTINAL: Denies distention. Denies nausea, vomiting, or diarrhea. Denies blood in vomitus, stools, or per rectum. Denies black, tarry stools. Denies constipation. GENITOURINARY: Denies difficulty urinating, painful urination, burning, frequency, blood in urine, or discharge. FEMALE GENITOURINARY: Denies vaginal bleeding, heavy or abnormal periods, irregular periods. Denies vaginal discharge or odor. MUSCULOSKELETAL: Denies back or neck pain or stiffness. Denies joint pain or swelling. SKIN: Denies rash, lesions or sores. HEMATOLOGIC : Denies easy bruising or bleeding. LYMPHATIC: Denies swollen, enlarged glands. NEUROLOGICAL: Denies confusion or altered mental status. Denies passing out or loss of consciousness. Denies dizziness or lightheadedness. Denies headache. Denies weakness or paralysis or loss of use of either side. Denies problems with gait or speech. Denies sensory loss, numbness, or tingling. Denies seizures. PSYCHIATRIC: Denies anxiety or stress. Denies depression, suicidal ideation, or homicidal ideation. ALL OTHER SYSTEMS REVIEWED AND NEGATIVE. PHYSICAL EXAMINATION: GENERAL: Well-appearing, well-nourished and in no acute distress. Morbid obesity HEAD: Atraumatic, normocephalic. EYES: Pupils equal round and reactive to light, extraocular movements intact, conjunctiva are normal. ENT: Nares patent, oropharynx clear without exudates. Moist mucous membranes. NECK: Normal range of motion, supple without lymphadenopathy LUNGS: Breath sounds decreased breath sounds with scattered wheezing expiratory throughout the lung field HEART: Regular rate and rhythm without murmurs ABDOMEN: Soft, nontender, nondistended abdomen. No guarding, no rebound. No masses appreciated. Examination of genitals-deferred Musculoskeletal: Normal range of motion, no pitting or edema. No cyanosis. NEUROLOGICAL: Cranial nerves grossly intact. Normal speech, normal gait. Normal sensory, motor exams PSYCH: Normal mood, normal affect. SKIN: Warm, Dry, normal turgor, no rashes or lesions noted. Dictation was performed using [employer] voice recognition software TRAVEL OUTSIDE OF THE [place] IN LAST 30 DAYS: No - Related Data Allergies/Adverse Reactions: hydrocodone bitartrate [From Vicodin] Allergy (Verified 09/15/17 12:41) tramadol HCl [From Ultram] Allergy (Verified 09/15/17 12:41) Past Medical History - Social History Smoking Status: Never Smoker Chew tobacco use (# tins/day): No Frequency of alcohol use: None Drug Abuse: None Family History: Arthritis, CAD - Father, Hyperlipidemia, Hypertension, Malignancy, Thyroid Disfunction Patient has suicidal ideation: No Patient has homicidal ideation: No - Past Medical History Cardiac Medical History: Reports: Hx Hypercholesterolemia, Hx Hypertension Pulmonary Medical History: Reports: Hx Asthma, Hx Bronchitis Endocrine Medical History: Reports: Hx Diabetes Mellitus Type 2 Renal/ Medical History: Denies: Hx Peritoneal Dialysis GI Medical History: Reports: Hx Gastroesophageal Reflux Disease Musculoskeltal Medical History: Reports Hx Arthritis Past Surgical History: Reports: Hx Appendectomy, Hx Cardiac Catheterization, Hx Oral Surgery - Immunizations Immunizations up to date: Yes Hx Diphtheria, Pertussis, Tetanus Vaccination: Yes Review of Systems - Review of Systems Notes: just prior to arrival Physical Exam - Vital signs Vitals: Temp Pulse Resp BP Pulse Ox 98.8 F 84 18 142/97 H 96 03/03/18 16:10 03/03/18 16:10 03/03/18 16:10 03/03/18 16:10 03/03/18 16:10 - Notes Notes: just prior to arrival Course - Re-evaluation Re-evalutation: 03/03/18 18:33 Given bronchodilator treatment with clinical improvement he was discharged home. Chest x-ray reported by radiologist as unremarkable - Vital Signs Vital signs: Temp Pulse Resp BP Pulse Ox 98.8 F 84 18 142/97 H 96 03/03/18 16:10 03/03/18 16:10 03/03/18 16:10 03/03/18 16:10 03/03/18 16:10 Discharge - Discharge Clinical Impression: Asthmatic bronchitis Qualifiers: Asthma severity: moderate Asthma persistence: persistent Asthma complication type: uncomplicated Qualified Code(s): J45.40 - Moderate persistent asthma, uncomplicated Condition: Fair Disposition: HOME, SELF-CARE Instructions: Bronchitis With Bronchospasm (Wheezing) ([facility]) Prescriptions: Albuterol Sulfate [Proair HFA Inhalation Aerosol 8.5 gm MDI] 2 puff IH Q4H PRN # 1 mdi PRN Reason: Fluticasone Propionate [Flovent HFA 220 mcg MDI] 1 puff IH BID #1 mdi Hydrocodone/Chlorphen P-Stirex [Tussionex Pennkinetic Susp] 5 ml PO BID #100 [email or web address] Prednisone 10 mg PO ASDIR PRN #1 tab.ds.pk PRN Reason:
--- NOTE | 2018-03-03 17:49 | RADIOLOGY REPORT (SQ) ---
EXAM DESCRIPTION: CHEST 2 VIEWS COMPLETED DATE/TIME: 03/03/2018 5:39 pm REASON FOR STUDY: cough COMPARISON: 10/30/2016 EXAM PARAMETERS: NUMBER OF VIEWS: two views TECHNIQUE: Digital Frontal and Lateral radiographic views of the chest acquired. RADIATION DOSE: NA LIMITATIONS: none FINDINGS: LUNGS AND PLEURA: No opacities, masses or pneumothorax. No pleural effusion. MEDIASTINUM AND HILAR STRUCTURES: No masses or contour abnormalities. HEART AND VASCULAR STRUCTURES: Heart normal size. No evidence for failure. BONES: No acute findings. HARDWARE: None in the chest. OTHER: No other significant finding. IMPRESSION: NO ACUTE RADIOGRAPHIC FINDING IN THE CHEST. TECHNICAL DOCUMENTATION: JOB ID: [id number] [email or web address]- All Rights Reserved Reading location - IP/workstation name: [email or web address]
== END 2018-03-03 18:45 | disposition home or self-care (01) ==
LOC: ER 16:03
DX: J45.40 Moderate persistent asthma, uncomplicated (principal); R05 Cough; I10 Essential (primary) hypertension; E11.9 Type 2 diabetes mellitus without complications; Z88.5 Allergy status to narcotic agent
CPT/HCPCS: 94640; 99283; 96372; 71046; J2930; J7620

== ENCOUNTER 2018-10-08 10:42 | Emergency (ER) | payer SELFPAY ==
[2018-10-08 10:48] VITALS: BP 134/83
[2018-10-08] MEDS ORDERED: KETOROLAC TROMETHAMINE INJ/PF 30 MG/1 ML SDV IV ONE (12:16)
[2018-10-08] MEDS ORDERED: METOCLOPRAMIDE HCL INJ/PF 10 MG/2 ML SDV IV ONE (12:16)
[2018-10-08] MEDS ORDERED: DIPHENHYDRAMINE HCL 50 MG/ML VIAL IV ONE (12:16)
--- NOTE | 2018-10-08 12:17 | ER Document Report ---
ED Medical Screen (RME) - General Chief Complaint: High Blood Pressure Stated Complaint: HEADACHE Time Seen by Provider: 10/08/18 12:16 TRAVEL OUTSIDE OF THE [place] IN LAST 30 DAYS: No - Related Data Allergies/Adverse Reactions: hydrocodone bitartrate [From Vicodin] Allergy (Verified 10/08/18 10:43) tramadol HCl [From Ultram] Allergy (Verified 10/08/18 10:43) Past Medical History - Social History Frequency of alcohol use: None Drug Abuse: None - Past Medical History Cardiac Medical History: Reports: Hx Hypercholesterolemia, Hx Hypertension Pulmonary Medical History: Reports: Hx Asthma, Hx Bronchitis Endocrine Medical History: Reports: Hx Diabetes Mellitus Type 2 Renal/ Medical History: Denies: Hx Peritoneal Dialysis GI Medical History: Reports: Hx Gastroesophageal Reflux Disease Musculoskeltal Medical History: Reports Hx Arthritis Past Surgical History: Reports: Hx Appendectomy, Hx Cardiac Catheterization, Hx Oral Surgery - Immunizations Immunizations up to date: Yes Hx Diphtheria, Pertussis, Tetanus Vaccination: Yes Physical Exam - Vital signs Vitals: Temp Pulse Resp BP Pulse Ox 98.1 F 76 18 134/83 H 95 10/08/18 10:46 10/08/18 10:46 10/08/18 10:46 10/08/18 10:46 10/08/18 10:46 Course - Re-evaluation Re-evalutation: 10/08/18 12:17 42-year-old man who presents for evaluation of a headache. Says is stereotypical migraine for him most recent of which he had approximately 7 years ago. I have seen and evaluated this patient in rapid medical exam. They will require reassessment potentially further diagnostics and a disposition determination from a secondary provider. - Vital Signs Vital signs: Temp Pulse Resp BP Pulse Ox 98.1 F 76 18 134/83 H 95 10/08/18 10:46 10/08/18 10:46 10/08/18 10:46 10/08/18 10:46 10/08/18 10:46 - Laboratory Laboratory results interpreted by me: 10/08/18 13:39 POC Glucose 128 H Doctor's Discharge - Discharge Clinical Impression: Headache, Balanoposthitis Condition: Stable Disposition: HOME, SELF-CARE Additional Instructions: Please use the cream as directed, you can take the prescribed medication Fioricet for your headache, but do not drive if you are taking this medication. Please follow-up with your primary care physician requiring management of your hypertension and your diabetes. Prescriptions: Butalb/Acetaminophen/Caffeine [Fioricet (50-325-40 mg) Tablet] 1 tab PO Q6H PRN #10 tab PRN Reason: headache Miconazole Nitrate [Anti-Fungal Cream] 1 applic TP BID #1 tube [facility] - Follow up as needed
[2018-10-08] MEDS ORDERED: FLUCONAZOLE 100 MG TABLET PO ONE (13:37)
--- NOTE | 2018-10-08 13:40 | ER Document Report ---
ED General - General Chief Complaint: High Blood Pressure Stated Complaint: HEADACHE Time Seen by Provider: 10/08/18 12:16 Notes: Patient is a 42-year-old male with diabetes and hypertension that presents to the emergency department for chief complaint of headache. Patient reports she is been having a mild frontal headache over the past 4 days, he has had some lightheadedness, but denies nausea or vomiting briefly had some blurred vision a few days ago, but that has since resolved as well. He has been taking Tylenol and Advil with some relief of his headache, but because it was persisting as long he decided come to the emergency department. He also has been noticing his blood pressures been higher at home, but he does take medication and has been compliant. His blood pressure today was borderline normotensive. At this time he states that his headache is a 2 out of 10, and improving, describes it as an aching frontal headache. He also notes that he has been having a yeast infection along the head of his penis, which he has had in the past, he is not sure of what his blood glucose levels have been recently, he states his glucometer has not been working. Past Medical History: Diabetes mellitus, hypertension, hyperlipidemia Past Surgical History: Appendectomy Social History: Admits to smoking cigarettes daily, denies alcohol or drug use. Family History: Reviewed and noncontributory for presenting illness Allergies: Reviewed, see documented allergy list. REVIEW OF SYSTEMS: Other than noted above, the 12 point review of systems was reviewed with the patient and were negative, all pertinent findings are included in the HPI. PHYSICAL EXAMINATION: Vital signs reviewed, nursing noted reviewed. GENERAL: Obese male, in no acute distress HEAD: Atraumatic, normocephalic. EYES: Eyes appear normal, extraocular movements intact, sclera anicteric, conjunctiva are normal. PERRLA ENT: nares patent, oropharynx clear without exudates. Moist mucous membranes. Sinuses nontender NECK: Normal range of motion, supple without lymphadenopathy LUNGS: Breath sounds clear to auscultation bilaterally and equal. No wheezes rales or rhonchi. HEART: Regular rate and rhythm without murmurs ABDOMEN: Soft, nontender, normoactive bowel sounds. No rebound, guarding, or rigidity. No masses appreciated. EXTREMITIES: Nontender, good range of motion, no pitting or edema. NEUROLOGICAL: No focal neurological deficits. Moves all extremities spontaneously Motor and sensory grossly intact on exam. PSYCH: Normal mood, normal affect. SKIN: Warm, Dry, normal turgor, no rashes or lesions noted on exposed skin TRAVEL OUTSIDE OF THE [place] IN LAST 30 DAYS: No - Related Data Allergies/Adverse Reactions: hydrocodone bitartrate [From Vicodin] Allergy (Verified 10/08/18 10:43) tramadol HCl [From Ultram] Allergy (Verified 10/08/18 10:43) Past Medical History - Social History Smoking Status: Never Smoker Frequency of alcohol use: None Drug Abuse: None Family History: Arthritis, CAD - Father, Hyperlipidemia, Hypertension, Malignancy, Thyroid Disfunction Patient has suicidal ideation: No Patient has homicidal ideation: No - Past Medical History Cardiac Medical History: Reports: Hx Hypercholesterolemia, Hx Hypertension Pulmonary Medical History: Reports: Hx Asthma, Hx Bronchitis Endocrine Medical History: Reports: Hx Diabetes Mellitus Type 2 Renal/ Medical History: Denies: Hx Peritoneal Dialysis GI Medical History: Reports: Hx Gastroesophageal Reflux Disease Musculoskeletal Medical History: Reports Hx Arthritis Past Surgical History: Reports: Hx Appendectomy, Hx Cardiac Catheterization, Hx Oral Surgery - Immunizations Immunizations up to date: Yes Hx Diphtheria, Pertussis, Tetanus Vaccination: Yes Physical Exam - Vital signs Vitals: Temp Pulse Resp BP Pulse Ox 98.1 F 76 18 134/83 H 95 10/08/18 10:46 10/08/18 10:46 10/08/18 10:46 10/08/18 10:46 10/08/18 10:46 Course - Re-evaluation Re-evalutation: Patient seen and examined vital signs reviewed. Patient was evaluated and treated as appropriate for the patient's presenting symptoms and complaint, with consideration of any critical or life threatening conditions that may be associated with their obtained history and exam as noted above. Patient was treated with Reglan and Toradol by triage provider, upon my evaluation, the patient's headache was nearly resolved and he was feeling much better. At this point I felt the patient be discharged home, as his headache was essentially resolved, he was feeling much better, low suspicion for acute intracranial abnormalities or hemorrhage, given normotensive, resolving headache, and slow onset of headache, over the past 4 days, therefore did not proceed with obtaining CT imaging. Will provide patient prescription for mi conazole cream to help with disease infection, he is also given a one-time dose of Diflucan 150 mg. Evaluation was most consistent with headache, balanoposthitis Plan of care was discussed with the patient at this point, after careful consideration I feel that that patient can be discharged from the emergency department, the patient was educated treatments and reasons to return to the emergency department based on their presumed diagnosis as noted above, they were advised to followup with a primary care physician in 2-3 days. Patient was agreeable to plan of care. *Note is created using voice recognition software and may contain spelling, syntax or grammatical errors. Laboratory 10/08/18 13:39 POC Glucose 128 H - Vital Signs Vital signs: Temp Pulse Resp BP Pulse Ox 98.1 F 76 18 134/83 H 95 10/08/18 10:46 10/08/18 10:46 10/08/18 10:46 10/08/18 10:46 10/08/18 10:46 - Laboratory Laboratory results interpreted by me: 10/08/18 13:39 POC Glucose 128 H Discharge - Discharge Clinical Impression: Balanoposthitis Headache Qualifiers: Headache type: unspecified Headache chronicity pattern: acute headache Intractability: not intractable Qualified Code(s): R51 - Headache Condition: Stable Disposition: HOME, SELF-CARE Additional Instructions: Please use the cream as directed, you can take the prescribed medication Fioricet for your headache, but do not drive if you are taking this medication. Please follow-up with your primary care physician requiring management of your hypertension and your diabetes. Prescriptions: Butalb/Acetaminophen/Caffeine [Fioricet (50-325-40 mg) Tablet] 1 tab PO Q6H PRN #10 tab PRN Reason: headache RX: Miconazole Nitrate [Anti-Fungal Cream] 1 applic TP BID #1 tube [facility] [Provider [facility]] - Follow up as needed
== END 2018-10-08 14:04 | disposition home or self-care (01) ==
LOC: ER 10:42
DX: N47.6 Balanoposthitis (principal); R51 Headache; R42 Dizziness and giddiness; E11.9 Type 2 diabetes mellitus without complications; I10 Essential (primary) hypertension; E78.00 Pure hypercholesterolemia, unspecified; Z88.6 Allergy status to analgesic agent; F17.200 Nicotine dependence, unspecified, uncomplicated
CPT/HCPCS: 99283; 96374; 96375; 82962; J1200; J1885; J2765